=== PATIENT | female | born 1990 | race Caucasian/White ===

== ENCOUNTER 2017-05-28 17:57 | Emergency (ER) | payer OTHER, MEDICAID ==
[~2017-05-28] VITALS: Ht 152.4 cm; Wt 81.8 kg
[2017-05-28] MEDS ORDERED: ASPIRIN E.C. 8181 MG PO (18:08)
[2017-05-28] MEDS ORDERED: ONE DAILY WOME1 EACH PO (18:09)
[2017-05-28 19:48] VITALS: BP 103/61
== END 2017-05-28 19:48 | disposition home or self-care (01) ==
LOC: ED 17:57
DX: S00.12XA Contusion of left eyelid and periocular area, initial encounter (principal); V43.62XA Car passenger injured in collision with other type car in traffic accident, initial encounter; Y92.410 Unspecified street and highway as the place of occurrence of the external cause; D68.9 Coagulation defect, unspecified; Z79.82 Long term (current) use of aspirin; F17.200 Nicotine dependence, unspecified, uncomplicated; Z88.0 Allergy status to penicillin